=== PATIENT | female | born 1995 | race Caucasian/White ===

== ENCOUNTER → 2021-08-16 11:47 | Outpatient (CLI) | payer OTHER, SELFPAY ==
[2021-08-16 11:53] VITALS: BP 132/69; PULSE 100; RESP 18; O2SAT 100; BMI 29.5
--- NOTE | 2021-08-16 12:12 | DI.US.S_ITS ---
PROCEDURE: US OB LIMITED INDICATIONS: RECOMFIRM DEMISE PRIOR TO DNC OUTSIDE/PRIOR DATING DATA: Last menstrual period (LMP): 06/07/2021. LMP-based estimated date of delivery (JEN): 03/14/2022. First dating scan (date and location): 08/16/2021. Estimated date of delivery (JEN) from first dating scan: 03/18/2022. The calculations are made using the ultrasound JEN of 03/18/2022. TECHNIQUE: Real-time scanning was performed of the fetus, with image documentation. Endovaginal scanning: Performed. COMPARISON: [facility], US, US OB <= 14 WEEKS FETUS, 08/15/2021, 8:40. FINDINGS: A single early intrauterine gestation is present. [place]-rump length measures 2.7 cm. This corresponds to estimated gestational age 9 weeks 3 days. heart rate: Not detected on spectral Doppler or color Doppler. A yolk sac is seen. No perigestational hemorrhage. Estimated gestational age from today's scan: 9 weeks 3 days. IMPRESSION: 1. [place]-rump length measuring 2.7 cm. No heart rate detected. Ultrasound findings diagnostic of failure. 2. No perigestational hemorrhage. Dictated by: Eduardo Watson M.D. on 08/16/2021 at 13:35 Approved by: Eduardo Watson M.D. on 08/16/2021 at 13:41
== END ==
LOC: ED 12:06 → US 13:27
PROVIDERS: PCP Nurse Practitioner Family; Visit Provider Obstetrics & Gynecology
DX: O02.1 Missed abortion (principal)
CPT/HCPCS: 76815; 76817; 99281

== ENCOUNTER → 2021-08-17 11:01 | Outpatient (CLI) | payer OTHER, SELFPAY ==
[2021-08-17 12:20] LABS: COVID19 -Nasal RAPID Negative (Negative)
== END ==
PROVIDERS: PCP Nurse Practitioner Family; Visit Provider Obstetrics & Gynecology
DX: Z01.812 Encounter for preprocedural laboratory examination (principal); Z20.822 Contact with and (suspected) exposure to COVID-19
CPT/HCPCS: 87635

== ENCOUNTER 2021-08-17 12:49 | Day surgery (SDC) | payer OTHER, SELFPAY ==
[2021-08-15 15:04] VITALS: BMI 29.7
[2021-08-17] VITALS (7 sets, daily range): BP systolic 111–131; BP diastolic 61–76; PULSE 73–104; RESP 14–20; TEMP 37–37.3; O2SAT 99–100; BMI 29.3
--- NOTE | 2021-08-17 | PATH_ITS ---
[facility] Accession Number: [id number] . 01 Material submitted: . product of conception - PRODUCTS OF CONCEPTION . 02 Diagnosis: Products of Conception, Removal: Few immature chorionic villi with hydropic change. No evidence of significant atypia or proliferation. [place] and gestational endometrium. Blood, fibrin, and necroinflammatory debris. MRV 08/21/2021 1357 Local . 02 Electronically signed: . Sharmila Armando MD, Pathologist NPI- [id number] . 01 Gross description: . The specimen is received in formalin, labeled products of conception, and consists of multiple red-brown fragments of soft tissue and clotted blood measuring 11.0 x 8.0 x 3.0 cm in aggregate. Chorionic villi are identified. No parts are identified. Hydrometeorologist sections are submitted in cassettes A1-A3. ([id number]) /[facility] 08/19/2021 0950 Local . 02 Pathologist provided ICD-10: O02.1, Z33.1 . 02 CPT . 800972 Performed at: 01 [facility] [address], [place], [place] [id number] MD Miguel Fulton MD Phone: [phone] [facility]formed at: [facility] [address] [place], [place] [id number] MD Naima Julian MD Phone: [phone]
[2021-08-17] MEDS: LACTATED RINGERS 1,000 ML 100 ML IV (13:34)
--- NOTE | 2021-08-17 15:00 | P.HP_ITS ---
History of Present Illness History of Present Illness Date Patient Seen: 08/17/21 Time Patient Seen: 15:00 Chief complaint: SUCTION D&C Narrative: Patient is a 26-year-old 1 para 0 with a missed at 9 weeks gestation. She is scheduled for a suction D&C. Patient History Medical History (Updated 08/16/21 @ 13:02 by Vale Mason RN) Adopted person Anxiety and depression (~2010) Heartburn (~2018) Irregular menses (~2007) Presence of tooth-root and mandibular implants Surgical History (Updated 08/13/21 @ 22:55 by Domonique Burgos) Anesthesia H/O umbilical hernia repair (~1996) History of oral surgery (~2011) [place] teeth extracted (~2015) Family & Social History Family History (Updated 07/25/21 @ 14:40 by Ayde Oconnor RN) Mother Smoker Father Family history unknown Grandmother Alcoholic Family history unknown Grandfather Family history unknown Grandmother Family history unknown Grandfather Family history unknown Sister Fibromyalgia History of recurrent miscarriages Anxiety Depression Social History: household members spouse lives independently Yes caregiver/support person No Tobacco & Substance use: Smoking Status Never smoker alcohol intake former Substance Use Type does not use Meds Home Medications and Allergies Home Medications Medication Instructions Recorded Confirmed Type prenat.vits,reinier,qkl-yksm-lyell 1 tab PO DAILY 07/25/21 08/17/21 History Allergies Allergy/AdvReac Type Severity Reaction Status Date / Time epinephrine AdvReac Severe Unconscious Verified 07/25/21 14:19 [From Xylocaine with Epinephrine] lidocaine AdvReac Severe Unconscious Verified 07/25/21 14:19 [From Xylocaine with Epinephrine] Exam Vital Signs (past 8 hours): - 08/17/21 13:34 Temperature 98.6 F Pulse Rate 104 H Respiratory Rate 20 Blood Pressure 131/76 Pulse Oximetry 100 Oxygen Delivery Method Room Air Narrative Exam Narrative: HEENT: No thyromegaly, no anterior cervical or supraclavicular lymphadenopathy. Lungs:Clear to auscultation bilaterally, no wheezes. Cardiovascular: Regular rate and rhythm, no murmurs, rubs, or gallops. Abdomen: No scars. No hepatosplenomegaly. No masses palpable. External genitalia: Normal Vagina: Normal Cervix: Normal, nulliparous Bimanual exam: 9 Week size uterus. Mobile. No adnexal masses or tenderness Extremities: No edema Assessment & Plan Assessment & Plan narrative: Assessment: 26-year-old 1 para 0 with a missed at 9 weeks gestation Plan: Suction D&C The risks, benefits, and alternatives to the procedure were explained to the patient. The risks including bleeding, infection, and uterine perforation. She understands these risks and agrees to proceed. A full par Q was held and consent form was signed. COVID-19 COVID-19 status: Negative Result date/Date tested (Pos, Neg/Pending): 08/17/21 Time Spent With Patient Time with patient: less than 30 minutes Critical Care time: I spent a total of [] minutes of critical care time on this patient's care today; this time is exclusive of procedural time.
--- NOTE | 2021-08-17 15:03 | PM.PREOP ---
Pre-operative Note COVID-19 COVID-19 status: Negative Result date/Date tested (Pos, Neg/Pending): 08/17/21 Interval Note History & Physical reviewed/Exam performed by Physician: Yes Changes to H&P: No H&P completed within 30 days and has changed as indicated here:: 08/17/21
--- NOTE | 2021-08-17 15:10 | SUR.OPER ---
Lithotomy on padded OR bed, head on pillow, arms secured on padded arm boards at <90 degrees abduction. Legs secured in padded yellow fins stirrups. Patient voided in pre-op area prior to going to OR.
--- NOTE | 2021-08-17 15:29 | PM.GYNOP.1 ---
Operative Date/Time/Diagnoses Date of procedure: 08/17/21 Time of procedure: 15:29 Pre-op diagnosis: Missed at 9 weeks Post-op diagnosis: same Procedure & Clinicians Procedure: Procedures Operation Date: 08/17/21 14:45 Actual Procedure Side Surgeon ariane Baker MD Indications: Missed at 9 weeks Surgeon: Vielka Baker Anesthesia Type: General (LMA) Operative Notes Findings: 9 week size anteverted uterus Closure Type: not applicable Specimen(s): products of conception Estimated blood loss (mL): 100 Blood products transfused: none Procedure in detail: After informed consent was obtained, the patient was taken the operating room where she was placed in the dorsal supine position. After adequate LMA general anesthesia was achieved, she was placed in the dorsal lithotomy position, and prepped and draped in the usual sterile fashion. A time-out was performed. A bivalve speculum was placed into the vagina and the anterior lip of the cervix was grasped with a single-tooth tenaculum. The uterus sounded to 9 cm. The cervix was dilated to the # 9 Hegar dilator. The 9. Curved plastic curette passed easily into the endometrial cavity. Several passes with suction revealed a large amount of fluid and tissue. The catheter was removed. Gentle sharp curettage was performed yielding a large amount of tissue. The # 8 curved plastic curette passed easily into the endometrial cavity. Several passes with suction revealed tissue on the first few passes and blood only on the last 2 passes. The instruments were removed from the uterus. The single-tooth tenaculum was removed from the anterior lip of the cervix. The bivalve speculum was removed from the vagina. There was minimal amount of bleeding from the cervical os. A bimanual exam was performed which revealed a well contracted 8 week size uterus. Sponge, lap, instrument counts were correct x2. The patient tolerated the procedure well, and was taken to PACU in stable condition. Complications: none Post-operative Condition: stable Disposition: PACU Plan for aftercare: Home after recovery
== END 2021-08-17 16:21 | disposition home or self-care (01) ==
PROVIDERS: PCP Nurse Practitioner Family; Referring Provider Obstetrics & Gynecology; Visit Provider Obstetrics & Gynecology
PROC: (CPT 58120; principal; 2021-08-17 14:45)
DX: O02.1 Missed abortion (principal); Z3A.09 9 weeks gestation of pregnancy; Z20.822 Contact with and (suspected) exposure to COVID-19
CPT/HCPCS: 59820; 36415; 86850; 86900; 86901; 87635; J1100; J1885; J2250; J2405; J2704; J3010

== ENCOUNTER → 2021-11-27 07:36 | Outpatient (CLI) | payer OTHER, SELFPAY ==
[2021-11-27 09:22] LABS: HCG Quantitative /Beta subunit 18434 mIU/mL
== END ==
PROVIDERS: PCP Nurse Practitioner Family; Referring Provider Obstetrics & Gynecology; Visit Provider Obstetrics & Gynecology
DX: Z34.80 Encounter for supervision of other normal pregnancy, unspecified trimester (principal); Z87.59 Personal history of other complications of pregnancy, childbirth and the puerperium
CPT/HCPCS: 36415; 84702

== ENCOUNTER → 2021-12-07 12:59 | Outpatient (CLI) | payer OTHER, SELFPAY ==
[2021-12-07 14:56] LABS: HCG Quantitative /Beta subunit 39387 mIU/mL
== END ==
PROVIDERS: PCP Nurse Practitioner Family; Referring Provider Obstetrics & Gynecology; Visit Provider Obstetrics & Gynecology
DX: O20.9 Hemorrhage in early pregnancy, unspecified (principal)
CPT/HCPCS: 36415; 84702

== ENCOUNTER → 2021-12-10 07:25 | Outpatient (CLI) | payer OTHER, SELFPAY ==
[2021-12-10 09:57] LABS: HCG Quantitative /Beta subunit 47289 mIU/mL
== END ==
PROVIDERS: PCP Nurse Practitioner Family; Referring Provider Obstetrics & Gynecology; Visit Provider Obstetrics & Gynecology
DX: O20.9 Hemorrhage in early pregnancy, unspecified (principal)
CPT/HCPCS: 36415; 84702

== ENCOUNTER → 2022-01-22 07:16 | Outpatient (CLI) | payer OTHER, SELFPAY ==
[2022-01-22 08:50] LABS: Progesterone, Total 1.45 ng/mL
[2022-01-22 11:07] LABS: Free T4, Direct Thyroxine 1.13 ng/dL (0.78-2.19)
[2022-01-22 11:21] LABS: Thyroid Stimulating Hormone 3.04 uIU/mL (0.47-4.68)
[2022-01-24 17:57] LABS: Dilute Russell Viper Venom 40.2 sec (0.0-47.0); Lupus Reflex Interpretation Comment: (.); PTT-LA 38.3 sec (0.0-51.9)
[2022-02-25 15:09] LABS: Cardiolipin IgA Negative
== END ==
PROVIDERS: PCP Nurse Practitioner Family; Referring Provider Obstetrics & Gynecology; Visit Provider Obstetrics & Gynecology
DX: N96 Recurrent pregnancy loss (principal)
CPT/HCPCS: 36415; 81240; 81241; 81291; 83520; 84144; 84439; 84443; 85598; 85613; 86147; 86148

== ENCOUNTER → 2022-03-15 07:59 | Outpatient (CLI) | payer OTHER, SELFPAY ==
[2022-03-15 10:05] LABS: HCG Quantitative /Beta subunit 6086.9 mIU/mL
== END ==
PROVIDERS: PCP Nurse Practitioner Family; Referring Provider Obstetrics & Gynecology; Visit Provider Obstetrics & Gynecology
DX: N91.2 Amenorrhea, unspecified (principal); N96 Recurrent pregnancy loss
CPT/HCPCS: 36415; 84702

== ENCOUNTER → 2022-03-18 07:04 | Outpatient (CLI) | payer OTHER, SELFPAY ==
[2022-03-18 10:49] LABS: HCG Quantitative /Beta subunit 15954 mIU/mL
== END ==
PROVIDERS: PCP Nurse Practitioner Family; Referring Provider Obstetrics & Gynecology; Visit Provider Obstetrics & Gynecology
DX: N91.2 Amenorrhea, unspecified (principal); N96 Recurrent pregnancy loss
CPT/HCPCS: 36415; 84702

== ENCOUNTER → 2022-04-10 15:31 | Outpatient (CLI) | payer OTHER, SELFPAY ==
[2022-04-10 23:21] LABS: Urine N gonorrhoeae NOT DETECTED
[2022-04-10 23:31] LABS: Urine Chlamydia NOT DETECTED
== END ==
PROVIDERS: PCP Nurse Practitioner Family; Visit Provider Obstetrics & Gynecology
DX: Z34.81 Encounter for supervision of other normal pregnancy, first trimester (principal); Z3A.09 9 weeks gestation of pregnancy
CPT/HCPCS: 87491; 87591

== ENCOUNTER → 2022-04-16 08:05 | Outpatient (CLI) | payer OTHER, SELFPAY ==
[2022-04-16 08:42] LABS: Specimen Label NATERA KIT
[2022-04-16 09:02] LABS: Add Manual Diff / Slide Review NO; Basophils Absolute Auto 0 /uL (0-100); Basophils Percent Auto 0.2 % (0-2); Eosinophils Absolute Auto 100 /uL (0-450); Hematocrit 37.5 % (36-46); Hemoglobin 13.1 g/dL (12.0-16.0); Lymphocytes Absolute Auto 2400 /uL (1100-4500); Lymphocytes Percent Auto 25.5 % (25-40); Mean Corpuscular HGB Conc 34.9 % (30-36); Mean Corpuscular Hemoglobin 29.9 PG (26-34); Mean Corpuscular Volume 85.5 fL (80-100); Monocytes Absolute Auto 700 /uL (0-900); Monocytes Percent Auto 7.8 % (3-14); Neutrophils Absolute Auto 6100 /uL (1500-7000); Neutrophils Percent Auto 65.5 % (50-75); Platelet Count 267 X10^3/uL (150-400); Red Blood Cell Count 4.38 X10^6/uL (4.0-5.2); Red Cell Distribution Width 12.8 % (11.6-14.8); White Blood Cell Count 9.2 X10^3/uL (4.5-11.0)
[2022-04-16 09:03] LABS: Appearance Urine UA CLEAR; Bilirubin Urine UA NEGATIVE (NEGATIVE); Color Urine UA YELLOW; Glucose Urine UA NEGATIVE (Negative); Ketones Urine UA NEGATIVE (NEGATIVE); Leukocyte Esterase Urine UA 1+ (NEGATIVE); Nitrite Urine UA NEGATIVE (Negative); Occult Blood Urine UA NEGATIVE (Negative); Protein Urine UA NEGATIVE (Negative); Specific Gravity Urine UA <=1.005 (1.000-1.035); Urobilinogen Urine UA 0.2 E.U./dL (0.2)
[2022-04-16 09:10] LABS: pH Urine UA 7.5 (4.5-8.0)
[2022-04-16 09:14] LABS: Bacteria Urine Few (2-10); Culture Indicated Urine Cult Not Indicated; RBC Urine None Seen (0-5/HPF); Squamous Epithelial Cell Urine 0-1 /HPF (0-5/HPF); WBC Urine None Seen (0-5/HPF)
[2022-04-16 11:09] LABS: Hepatitis B Surface Antigen NEGATIVE s/c (NEGATIVE); Rubella Antibody IgG 4.7 IU/mL (>15)
[2022-04-16 11:27] LABS: HIV 1 & 2 Ab/Ag 4th Gen Combo NEGATIVE (NEGATIVE); Hep C Virus Ab w/Reflex Quant NEGATIVE s/c (NEGATIVE)
[2022-04-17 07:17] LABS: Varicella IgG Antibody 291 index (Immune >165)
[2022-04-17 09:02] LABS: RPR Screen Non Reactive (Non Reactive)
== END ==
PROVIDERS: PCP Nurse Practitioner Family; Referring Provider Obstetrics & Gynecology; Visit Provider Obstetrics & Gynecology
DX: O26.21 Pregnancy care for patient with recurrent pregnancy loss, first trimester (principal)
CPT/HCPCS: 36415; 80055; 81003; 81015; 86787; 86803; 86850; 86900; 86901; 87086; 87389

== ENCOUNTER → 2022-06-21 10:29 | Outpatient (CLI) | payer OTHER, SELFPAY ==
--- NOTE | 2022-06-21 10:30 | DI.US.S_ITS ---
PROCEDURE: US OB >= 14 WEEKS FETUS INDICATIONS: ANATOMY OUTSIDE/PRIOR DATING DATA: Last menstrual period (LMP): 01/08/2022 LMP-based estimated date of delivery (JEN): 11/12/2022. First dating scan (date and location): 03/19/2022. Estimated date of delivery (JEN) from first dating scan: 11/12/2022. TECHNIQUE: Real-time scanning was performed of the fetus, with image documentation and biometric measurements. Endovaginal scanning: Not indicated COMPARISON: [facility], , OB >= 14 WEEKS FETUS, 05/14/2022, 9:35. FINDINGS: General: A single living intrauterine gestation is present. Presentation: Vertex Placenta: Placental position is anterior, without previa. Amniotic fluid index: 13.3 cm, normal range is 5-24 cm. Single deepest vertical pocket is 4.4 cm. heart rate: 150 beats per minute. Maternal cervical canal: 4.5 cm long. Normal lower limit is 2.5 cm. biometrics: Biparietal diameter: 4.9 cm, 20 weeks, 6 days. Head circumference: 18.2 cm, 20 weeks, 4 days. Abdominal circumference: 15.1 cm, 20 weeks, 2 days. Femur length: 3.1 cm, 19 weeks, 4 days. Clinically estimated gestational age: 19 weeks, 3 days Composite gestational age from present scan: 20 weeks, 2 days Estimated weight and percentile: 330 g, 81%. Anatomic survey: Neuro: Ventricles are non-dilated at less than 10 mm. Cisterna magna is normal at 3-11 mm. Cerebellum is normal in size and morphology. Nuchal skin fold: Normal at less than 6 mm between 14-21 weeks gestational age. Face: Nose and lips, facial profile are normal. Spine: Not well seen. Heart: 4-chambered heart is present, with normal ventricular outflow tracts. Diaphragm: Diaphragm is intact. Stomach: Left-sided stomach is present. Kidneys: No hydronephrosis. Normal is less than 5 mm in 2nd trimester, less than 7 mm in 3rd trimester. Cord: 3-vessel cord has orthotopic insertion. Bladder: Normal in size. Extremities: All 4 extremities identified. IMPRESSION: 1. Single live intrauterine gestation with fetus in vertex presentation. heart rate is 150 beats per minute. Normal amount of amniotic fluid. Estimated weight is at 81%. 2. spine is not well visualized on this study. Rest of the anatomic survey is within normal limits. We strive to produce accurate, complete, and clear reports of imaging services. To assist us in improving patient care, this report was composed using standard report templates and voice recognition software. Therefore, it may contain abnormal punctuation, insertions and/or omissions. Occasional wrong-word or sound-alike substitutions may occur. Though we review the report and make efforts to correct it, we do recommend that the report be read carefully in proper context to recognize any text inaccuracies. Dictated by: Doron Boone M.D. on 06/21/2022 at 15:55 Approved by: Doron Boone M.D. on 06/21/2022 at 15:58
== END ==
PROVIDERS: PCP Nurse Practitioner Family; Referring Provider Obstetrics & Gynecology; Visit Provider Obstetrics & Gynecology
DX: Z34.92 Encounter for supervision of normal pregnancy, unspecified, second trimester (principal); Z3A.20 20 weeks gestation of pregnancy
CPT/HCPCS: 76811

== ENCOUNTER → 2022-06-21 12:04 | Outpatient (CLI) | payer OTHER, SELFPAY ==
[2022-06-24 13:47] LABS: AFP Value 77.8 ng/mL (.); Gest Age on Col Date 19.4 weeks (.); Insulin Dep Diabetes No (.); OSBR Risk 1IN 1895 (.); Results Report (.); Test Results *Screen Negative* (.)
== END ==
PROVIDERS: PCP Nurse Practitioner Family; Referring Provider Obstetrics & Gynecology; Visit Provider Obstetrics & Gynecology
DX: Z34.82 Encounter for supervision of other normal pregnancy, second trimester (principal); Z3A.20 20 weeks gestation of pregnancy
CPT/HCPCS: 36415; 76811; 82105